=== PATIENT | female | born 1995 | race Two or more races ===

== ENCOUNTER 2021-05-06 14:18 | Emergency (ER) | payer OTHER ==
[~2021-05-06] VITALS: Ht 149.9 cm; Wt 54.4 kg
== END 2021-05-06 16:25 | disposition home or self-care (01) ==
LOC: ER 14:18
DX: S93.401A Sprain of unspecified ligament of right ankle, initial encounter (principal); Y92.832 Beach as the place of occurrence of the external cause; X58.XXXA Exposure to other specified factors, initial encounter